=== PATIENT | female | born 1975 | race Two or more races ===

== ENCOUNTER 2017-05-17 19:36 | Emergency (ER) | payer MEDICAID ==
[~2017-05-17] VITALS: Ht 157.5 cm; Wt 90.7 kg
[~2017-05-17 19:36] MED LIST: OMEP20CA74 PO; PROM25TA5 PO; TRAM50TA2 PO
[2017-05-17 20:22] LABS: Basophils # (auto) 0 uL; Eosinophils # (auto) 0.1 uL; Hemoglobin 11.5 g/dL (12.2-16.2); Monocytes # (auto) 0.5 uL; Monocytes % (auto) 8.5 % (0.0-12.0); Neutrophils # (auto) 3.4 uL
[2017-05-17 20:24] LABS: Basophils % (auto) 0.8 % (0.0-2.0); Eosinophils % (auto) 2.4 % (0.0-7.0); Hematocrit 35.5 % (36.0-46.0); Lymphocytes # (auto) 1.5 uL; Lymphocytes % (auto) 27.4 % (10.0-50.0); Mean Corpuscular Hgb Conc. 32.4 g/dL (32.0-36.0); Mean Corpuscular Volume 73.9 fL (80.0-100.0); Mean Platelet Volume 7.2 fL (6.9-10.8); Neutrophils % (auto) 60.9 % (37.0-80.0); Platelet Count (auto) 291 10^3/uL (140-450); Red Cell Distribution Width 15.9 % (11.8-14.3); White Blood Cell 5.6 10^3/uL (4.4-10.8)
[2017-05-17 20:39] LABS: Albumin 4.1 g/dL (3.4-5.0); BUN/Creatinine Ratio 12.5; Bilirubin, Total 0.6 mg/dL (0.2-1.0); Calcium 8.8 mg/dL (8.5-10.1); Potassium 3.9 mmol/L (3.5-5.1); Total Protein 8.1 g/dL (6.4-8.2)
[2017-05-17 20:47] LABS: Hypochromia Slight; Microcytosis Moderate; Platelet Estimate Adequate
[2017-05-18 00:50] VITALS: BP 140/60
[2017-05-18] MEDS ORDERED: HYDROcodone-ACET 5/325MG TAB PO ONE (02:15)
== END 2017-05-18 02:28 | disposition home or self-care (01) ==
LOC: ER 19:36
DX: D64.9 Anemia, unspecified (principal); F41.9 Anxiety disorder, unspecified; Z95.1 Presence of aortocoronary bypass graft; Z87.442 Personal history of urinary calculi
CPT/HCPCS: 36415; 70450; 80053; 85025

== ENCOUNTER → 2020-04-01 | Emergency (ER) | payer MEDICAID ==
[~2020-04-01] VITALS: Ht 165.1 cm; Wt 77.1 kg
[~2020-04-01] MED LIST changes: +ONDANSETRON HCL 4 MG/2 ML VIAL IV ONE; +SODIUM CHLORIDE 0.9% 1,000 ML IV ONE; +THIAMINE 100mg/ml INJ (200mg/2ml VIAL) IV ONE; +THIAMINE INJ 100 MG in SODIUM CHLORIDE 0.9% 1,000 ML IV ONE
[2020-04-01 05:11] LABS: Basophils # (auto) 0 10 ^3/uL (0-0.2); Basophils % (auto) 0.6 % (0.0-2.0); Eosinophils # (auto) 0.1 10 ^3/uL (0-0.8); Eosinophils % (auto) 1.4 % (0.0-7.0); Hematocrit 37.6 % (36.0-46.0); Hemoglobin 12.6 g/dL (12.2-16.2); Lymphocytes # (auto) 1.5 10 ^3/uL (0.4-5.4); Lymphocytes % (auto) 32.6 % (10.0-50.0); Mean Corpuscular Hemoglobin 27.9 pg (28.0-32.0); Mean Corpuscular Hgb Conc. 33.6 g/dL (32.0-36.0); Monocytes # (auto) 0.3 10 ^3/uL (0-1.3); Monocytes % (auto) 6.7 % (0.0-12.0); Neutrophils # (auto) 2.7 10 ^3/uL (1.6-8.6); Neutrophils % (auto) 58.7 % (37.0-80.0); Nucleated Red Blood Cells % 0.1 %; Platelet Count (auto) 307 10^3/uL (140-450); Red Blood Cells 4.53 10^6/uL (4.0-5.20); Red Cell Distribution Width 16.5 % (11.8-14.3); White Blood Cell 4.7 10^3/uL (4.4-10.8)
[2020-04-01 05:31] LABS: Albumin 4.1 g/dL (3.4-5.0); Calcium 8.2 mg/dL (8.5-10.1); Potassium 3.4 mmol/L (3.5-5.1)
[2020-04-01 05:36] LABS: BUN/Creatinine Ratio 8.1; Bilirubin, Total 0.9 mg/dL (0.2-1.0); Total Protein 7.9 g/dL (6.4-8.2)
[2020-04-01 06:44] VITALS: BP 99/61
== END | disposition home or self-care (01) ==
LOC: EDUNIT# 03:47 → EDBD 03:51 → ER 03:54
DX: F10.221 Alcohol dependence with intoxication delirium (principal); Z79.899 Other long term (current) drug therapy; Z88.5 Allergy status to narcotic agent; Y90.6 Blood alcohol level of 120-199 mg/100 ml
CPT/HCPCS: 36415; 80053; 80320; 84702; 85025; 96361; 96374; 96375; 99284; J2405; J3411; J7030

== ENCOUNTER 2024-09-14 23:21 | Emergency (ER) | payer SELFPAY ==
[~2024-09-14 23:21] MED LIST changes: -ONDANSETRON HCL 4 MG/2 ML VIAL IV ONE; +PROM25TA10 PO; -PROM25TA5 PO; -SODIUM CHLORIDE 0.9% 1,000 ML IV ONE; -THIAMINE 100mg/ml INJ (200mg/2ml VIAL) IV ONE; -THIAMINE INJ 100 MG in SODIUM CHLORIDE 0.9% 1,000 ML IV ONE
== END 2024-09-15 01:56 | disposition left against medical advice (07) ==
LOC: ER 23:21
DX: R30.9 Painful micturition, unspecified (principal); Z53.21 Procedure and treatment not carried out due to patient leaving prior to being seen by health care provider

== ENCOUNTER 2024-11-19 15:28 | Emergency (ER) | payer MEDICAID ==
[~2024-11-19] VITALS: Ht 157.5 cm; Wt 90.9 kg
[2024-11-19] MEDS: HYDROmorphone HCL 2 MG/ML VL/or syr IM ONE (15:45)
--- NOTE | 2024-11-19 16:18 | ED.PDOC ---
CHANTELL General HPI Comments 49-year-old female with PMHx renal stones presents with a chief complaint of flank pain x onset today. Patient states that she initially went to urgent care but was referred to the ER. Patient mentions that she is also experiencing nausea, vomiting, and diarrhea. Patient is not actively vomiting in triage. Patient mentions that she has a history of kidney stones and was seen at [facility] [place] for this issue x 1 month ago. Patient rates her pain a 10/10 at this time. Chief Complaint: Flank Pain Time Seen by MD: 16:13 Primary Care Provider: JOSELUIS Del Castillo notes: Medications, Allergies Allergies: Coded Allergies: Morphine (Unverified Allergy, Severe, 09/12/14) Home Meds Active Scripts Tramadol Hcl (Tramadol Hcl) 50 Mg Tab, 50 MG PO TIDP PRN, #20 TAB Prov:LANDON ROCK M.D. 09/17/14 Promethazine Hcl (Promethazine Hcl) 25 Mg Tab, 1 TAB PO Q6HPRN, #20 TAB Prov:LANDON ROCK M.D. 09/17/14 Reported Medications Omeprazole (PRILOSEC) 20 Mg Cap, 20 MG PO DAILY, CAP 09/13/14 Information Source: Patient Mode of Arrival: Ambulatory Severity: Moderate Inability to void: None Timing: Hours Duration: Since onset Has not urinated for: Minutes Prehospital treatment: None Onset: Spontaneous Symptoms: None History of: Kidney stone Location: (R) Flank Modifying factors: None associated signs and symptoms: Flank Pain Past Medical History PAST MEDICAL HISTORY: Anemia, Cancer, Kidney Stones Surgical History: BTL, QUALITY COORDINATOR History: Denies all QUALITY COORDINATOR Hx Family History Family History: Family hx of DM, Family hx of HTN Social History Smoker: Non-Smoker Alcohol: Heavy Drugs: Denies Drug Use Lives In: Home Constitutional: denies: chills, diaphoresis, fatigue, fever, malaise, sweats, weakness, others EENTM: denies: blurred vision, double vision, ear bleeding, ear discharge, ear drainage, ear pain, ear ringing, eye pain, eye redness, hearing loss, mouth pain, mouth swelling, nasal discharge, nose bleeding, nose congestion, nose pain, photophobia, tearing, throat pain, throat swelling, voice changes, others Respiratory: denies: cough, hemoptysis, orthopnea, SOB at rest, shortness of breath, SOB with excertion, stridor, wheezing, others Cardiovascular: denies: chest pain, dizzy spells, diaphoresis, Dyspnea on exertion, edema, irregular heart beat, left arm pain, lightheadedness, palpitations, PND, syncope, others Gastrointestinal: denies: abdomen distended, abdominal pain, blood streaked bowels, constipated, diarrhea, dysphagia, difficulty swallowing, hematemesis, melena, nausea, poor appetite, poor fluid intake, rectal bleeding, rectal pain, vomiting, others Genitourinary: reports: flank pain; denies: abnormal vagina bleeding, burning, dyspareunia, dysuria, frequency, hematuria, incontinence, pain, , vagina discharge, urgency, others Neurological: denies: dizziness, fainting, headache, left sided numbness, left sided weakness, numbness, paresthesia, pre-existing deficit, right sided numbness, right sided weakness, seizure, speech problems, tingling, tremors, weakness, others Musculoskeletal: denies: back pain, gout, joint pain, joint swelling, muscle pain, muscle stiffness, neck pain, others Integumetry: denies: bruises, change in color, change in hair/nails, dryness, laceration, lesions, lumps, rash, wounds, others Allergic/Immunocompromised: denies: Difficulty Healing, Frequent Infections, Hives, Itching, others Hematologic/Lymphatic: denies: anemia, blood clots, easy bleeding, easy bruising, swollen glands, others Endocrine: denies: excessive hunger, excessive sweating, excessive thirst, excessive urination, flushing, intolerance to cold, intolerance to heat, unexplained weight gain, unexplained weight loss, others Psychiatric: denies: anxiety, bipolar disorder, depression, hopeless, panic disorder, schizophrenia, sleepless, suicidal, others All Other Systems: Reviewed and Negative Physical Exam General Appearance: Severe Distress HEENT: Normal ENT Inspection, Pharynx Normal, TMs Normal Neck: Full Range of Motion, Non-Tender, Normal, Normal Inspection Respiratory: Chest Non-Tender, Lungs Clear, No Accessory Muscle Use, No Respiratory Distress, Normal Breath Sounds Cardiovascular: No Edema, No JVD, No Murmur, No Gallop, Normal Peripheral Pulses, Regular Rate/Rhythm Breast Exam: Deferred Gastrointestinal: No Organomegaly, Non Tender, No Pulsatile Mass, Normal Bowel Sounds, Soft Genitalia: Deferred Pelvic: Deferred Rectal: Deferred Extremities: No calf tenderness, Normal capillary refill, Normal inspection, Normal range of motion, No pedal edema, Tender (RIGHT FLANK TENDERNESS) Neurologic: Alert, content assistant II-XII nml as Tested, No Motor Deficits, Normal Affect, Normal Mood, No Sensory Deficits Cerebellar Function: Normal Reflexes: Normal Skin: Dry, Normal Color, Warm Lymphatic: No Adenopathy Was a procedure done? Was a procedure done?: No Differential Diagnosis Kidney stone (Female): Appendicitis, Musculoskeletal pain, Pyelonephritis, Urinary obstruction, N/A X-Ray, Labs, Meds, VS Vital Signs Date Time Temp Pulse Resp B/P (MAP) Pulse Ox O2 Delivery O2 Flow Rate FiO2 11/19/24 17:04 97.9 90 17 148/79 (102) 95 97.9 11/19/24 17:04 Room Air* 0 21 11/19/24 15:45 89 16 149/79 11/19/24 15:39 97.5 89 16 149/79 (102) 95 97.5 Lab Test 11/19/24 16:18 Range/Units Sodium Level 141 136-145 mmol/L Potassium Level 4.2 3.5-5.1 mmol/L Chloride Level 106 98-107 mmol/L Carbon Dioxide Level 24 20-31 mmol/L Anion Gap 11 5-15 Blood Urea Nitrogen 10 9-23 mg/dL Creatinine 0.84 0.550-1.02 mg/dL Glomerular Filtration Rate Calc 86 >90 mL/min BUN/Creatinine Ratio 11.9 10.0-20.0 Serum Glucose 120 H 74-106 mg/dL Calcium Level 10.3 8.7-10.4 mg/dL Current Medications Medications (Trade) Dose Ordered Sig/Summer Route Start Time Stop Time Status Last Admin Hydromorphone HCl (Dilaudid Injection) 1 mg ONCE ONCE IM 11/19/24 15:45 11/19/24 15:46 DC 11/19/24 15:45 Ondansetron HCl (Zofran) 4 mg ONCE ONCE IM 11/19/24 15:45 11/19/24 15:46 DC 11/19/24 17:02 X-Ray, Labs, Meds, VS Comment IMAGING: X-RAYS AND CT SCANS WERE REVIEWED AND INTERPRETED BY THIS PROVIDER, NONOBSTRUCTING KIDNEY STONES. PENDING RADIOLOGY REVIEW. LABORATORY: LABS REVIEWED AND INTERPRETED BY THIS PROVIDER. NO SIGNIFICANT ABNORMALITIES NOTED. PATIENT HAS PRIOR MEDICAL VISITS REVIEWED. MED RECONCILIATION PERFORMED VITAL SIGNS REVIEWED Time of 1ST Reevaluation: 16:45 Reevaluation 1ST: Unchanged Patient Education/Counseling: Diagnosis, Treatment, Need For Follow Up (FOLLOW UP WITH THE PCP NEXT AVAILABLE APPOINTMENT. RETURN TO THE EMERGENCY DEPARTMENT IF SYMPTOMS WORSEN.) Family Education/Counseling: Diagnosis, Treatment Departure 1 Departure Time of Disposition: 20:39 Impression: Primary Impression: Renal colic on left side Additional Impressions: ABDOMINAL PAIN, OTHER SPECIFIED SITE RENAL COLIC Disposition: HOME / SELF CARE / HOMELESS Condition: Stable e-Prescriptions Tamsulosin Hcl (Flomax) 0.4 Mg Cap 1 CAP PO DAILY for 10 Days, #10 CAP 11 Refills Prov: JOCELIN HUERTA 11/19/24 Hydrocodone-Acetaminophen (Hydrocodone Bitartrate/AC 5-325 mg) 1 Tab Tab 1 TAB PO TID PRN, #24 TAB Prov: JOCELIN HUERTA 11/19/24 Discharged With: Self Critical Care Note Critical Care Time?: No Stability Stability form required: No Heart Score Heart Score: Heart Score Response (Comments) Value History N/A 0 EKG N/A 0 Age N/A 0 Risk Factors N/A 0 Troponin N/A 0 Total 0 I personally scribed for JOCELIN HUERTA ([email or web address]) on 11/19/24 at 16:17. Electronically submitted by Daen Obando ([email or web address]). JOCELIN HUERTA November 19, 2024 16:17
[2024-11-19 16:35] LABS: Chloride 106 mmol/L (98-107); Potassium 4.2 mmol/L (3.5-5.1); Sodium 141 mmol/L (136-145)
[2024-11-19 16:36] LABS: Anion Gap 11 (5-15); Calcium 10.3 mg/dL (8.7-10.4); Carbon Dioxide 24 mmol/L (20-31)
[2024-11-19 16:41] LABS: BUN/Creatinine Ratio 11.9 (10.0-20.0); Blood Urea Nitrogen 10 mg/dL (9-23)
[2024-11-19 16:44] LABS: Glucose 120 mg/dL (74-106)
[2024-11-19] MEDS: ONDANSETRON HCL 4 MG/2 ML VIAL IM ONE (17:02)
[2024-11-19 17:04] VITALS: BP 148/79; PULSE 90; RESP 17; TEMP 97.9; O2SAT 95
--- NOTE | 2024-11-19 18:18 | DVH ---
Indication: FLANK PAIN Technique: CT axial images of the abdomen and pelvis are obtained without contrast. Coronal and sagit nicole reformats were obtained. Radiation Dose Information: CTDI volume is 21 mGy. Dose-length product is 1162 mGy*cm Comparison: None FINDINGS: There is limited interpretation of the abdomen and pelvis without administration of intravenous contr ast. The lung bases demonstrate atelectasis. Adrenal glands, pancreas unremarkable in shape. 1.3 cm left hepatic lobe hypodensity, statistically l ikely representing cysts. No CT evidence for cholelithiasis. The spleen measures 13.1 cm craniocaudal . The right kidney demonstrates moderate right hydroureteronephrosis secondary to a distal right ureter al calculus measuring 4 mm. The left kidney demonstrates no hydronephrosis or nephrolithiasis. Stomach partially distended. Small bowel loops are normal in caliber. Colonic diverticular disease. Moderate volume stool in the colon. No secondary signs for appendicitis . Bladder is contracted. No free pelvic fluid. No inguinal lymphadenopathy. [id number] bilateral sacroiliac degenerative joint disease. Mild thoracolumbar degenerative dis c disease. IMPRESSION: 1. Moderate right hydroureteronephrosis secondary to a 4 mm distal right ureteral calculus. 2. Splenomegaly 3. Right hepatic lobe hypodensity, incompletely Characterized. This can be further characterized wit h multiphasic MRI abdomen in the nonemergent setting. 4. Colonic diverticular disease. 5. Other findings as described.
[2024-11-19] MEDS ORDERED: HYDR-4902 PO (20:41)
[2024-11-19] MEDS ORDERED: TAMS-35 PO (20:41)
== END 2024-11-20 02:04 | disposition home or self-care (01) ==
LOC: ER 15:28
DX: N23 Unspecified renal colic (principal); R11.2 Nausea with vomiting, unspecified; Z98.51 Tubal ligation status; Z79.899 Other long term (current) drug therapy; Z88.1 Allergy status to other antibiotic agents
CPT/HCPCS: 36415; 74176; 80048; 96372; 99285; J1171; J2405